=== PATIENT | male | born 1975 | race Caucasian/White ===

== ENCOUNTER 2018-03-21 08:45 | Emergency (ER) | payer OTHER ==
[2018-03-21] MEDS ORDERED: SODIUM CHLORIDE 0.9% 1,000 ML IV ONE (09:03)
[2018-03-21] MEDS ORDERED: KETOROLAC 60 MG/2 ML VIAL IVP STA (09:03)
--- NOTE | 2018-03-21 09:06 | ED Physician Documentation ---
PD HPI ABD PAIN - Stated complaint Stated Complaint: RT SIDE ABDOMINAL PAIN - Chief complaint Chief Complaint: Abd Pain - History obtained from History obtained from: Patient - History of Present Illness Timing - onset: Today Timing - duration: Minutes Timing - details: Abrupt onset, Still present Quality: Sharp, Pain Location: RUQ Radiation: Right flank Improved by: Other (nothing) Worsened by: Other (nothing) Associated symptoms: No: Fever, Nausea, Vomiting Similar symptoms before: Diagnosis (kidney stone) Recently seen: Not recently seen - Additional information Additional information: 43-year-old male with a history of kidney stones has developed right flank pain radiating down the anterior part of his abdomen this morning. He has no modifying factors for this pain he has had similar pain previously with kidney stone. His first kidney stone took him 2 weeks to pass the second 1 passed within 2 days. He has had CT scan last in 2011. He denies any fever nausea vomiting or loss of appetite. Review of Systems Constitutional: denies: Fever, Chills Eyes: denies: Decreased vision Ears: denies: Ear pain Nose: denies: Congestion Throat: denies: Sore throat Respiratory: denies: Cough GI: reports: Abdominal Pain. denies: Nausea, Vomiting : denies: Dysuria, Frequency PD PAST MEDICAL HISTORY - Past Medical History Past Medical History: Yes Neuro: Migraines : Kidney stones - Present Medications Home Medications: Ambulatory Orders Medication Instructions Recorded Confirmed HYDROcod/ACETAM 5/325 [[place] 5/325] 1 - 2 ea PO Q6H PRN #15 tablet 03/21/18 Omeprazole 20 mg PO 03/21/18 - Allergies Allergies/Adverse Reactions: Allergies Allergy/AdvReac Type Severity Reaction Status Date / Time erythromycin base Allergy Hives Verified 03/21/18 08:52 - Social History Does the pt smoke?: No Smoking Status: Never smoker PD ED PE NORMAL - Vitals Vital signs reviewed: Yes (hypertensive ) - General General: Alert and oriented X 3, No acute distress, Well developed/nourished - HEENT HEENT: Atraumatic, PERRL, EOMI - Neck Neck: Supple, no meningeal sign - Respiratory Respiratory: No respiratory distress - Abdomen Abdomen: Normal bowel sounds, Soft, Non tender, Non distended, No organomegaly - Back Back: No CVA TTP, No spinal TTP - Derm Derm: Normal color, Warm and dry, No rash - Extremities Extremities: No deformity, No edema - Neuro Neuro: No motor deficit, No sensory deficit Eye Opening: Spontaneous Motor: Obeys Commands Verbal: Oriented GCS Score: 15 - Psych Psych: Normal mood, Normal affect Results - Vitals Vitals: Vital Signs - 24 hr 03/21/18 03/21/18 08:53 09:29 Temperature 36.5 C Heart Rate 55 L 69 Respiratory 18 14 Rate Blood Pressure 164/93 H 125/71 O2 Saturation 97 98 Oxygen O2 Source Room air - Labs Labs: Laboratory Tests 03/21/18 10:05 Urine Color YELLOW Urine Clarity CLEAR Urine pH 7.0 Ur Specific [place] 1.020 Urine Protein NEGATIVE Urine Glucose (UA) NEGATIVE Urine Ketones NEGATIVE Urine Occult Blood TRACE-INTA Urine Nitrite NEGATIVE Urine Bilirubin NEGATIVE Urine Urobilinogen 0.2 (NORMAL) Ur Leukocyte Esterase NEGATIVE Ur Microscopic Review NOT INDICATED Urine Culture Comments NOT INDICATED Procedures - Bedside sono Bedside sono by EMP: With use of bedside ultrasound the right kidney is imaged it is sonographically nontender and there is evidence of hydronephrosis. PD MEDICAL DECISION MAKING - ED course Complexity details: reviewed results, re-evaluated patient, considered differential, d/w patient ED course: 43-year-old male with a prior history of kidney stone has typical symptoms back again today and has right flank pain. He does have a sonographically nontender kidney with evidence of hydronephrosis on the right side. I discussed with the patient the strategy of treatment of the kidney stone and delay of further imaging procedures. He is administered 1 L of saline and 30 mg of Toradol intravenously. - Sepsis Event Vital Signs: Vital Signs - 24 hr 03/21/18 03/21/18 08:53 09:29 Temperature 36.5 C Heart Rate 55 L 69 Respiratory 18 14 Rate Blood Pressure 164/93 H 125/71 O2 Saturation 97 98 Oxygen O2 Source Room air Departure - Departure Disposition: 01 Home, Self Care Clinical Impression: Ureterolithiasis Condition: Stable Instructions: ED Stone Renal W Colic Follow-Up: TRISTON LONGO [Primary Care Provider] - Prescriptions: HYDROcod/ACETAM 5/325 [[place] 5/325] 1 - 2 ea PO Q6H PRN #15 tablet PRN Reason: Pain
[2018-03-21 10:20] LABS: BILIRUBIN,URINE NEGATIVE (NEGATIVE); GLUCOSE, URINE (UA) NEGATIVE (NEGATIVE); KETONES,URINE (UA) NEGATIVE (NEGATIVE); LEUKOCYTE ESTERASE, URINE NEGATIVE (NEGATIVE); NITRITE,URINE NEGATIVE (NEGATIVE); OCCULT BLOOD,URINE TRACE-INTA (NEGATIVE); PROTEIN,URINE NEGATIVE (NEGATIVE); UROBILINOGEN,URINE 0.2 (NORMAL) E.U./dL (NORMAL)
[2018-03-21 10:23] LABS: CLARITY,URINE CLEAR (CLEAR)
[2018-03-21 10:40] VITALS: BP 147/98
== END 2018-03-21 10:40 | disposition home or self-care (01) ==
LOC: ED 08:45
DX: N20.9 Urinary calculus, unspecified (principal); Z87.442 Personal history of urinary calculi
CPT/HCPCS: 81001; 81003; 87086; 96361; 96374; 99283

== ENCOUNTER 2020-02-05 20:15 | Emergency (ER) | payer OTHER ==
--- NOTE | 2020-02-05 20:55 | ED Physician Documentation ---
History of Present Illness - Stated complaint Stated Complaint: L SHOULDER PAIN - Chief complaint Chief Complaint: Ext Problem - History obtained from History obtained from: Patient (44-year-old male patient comes in today with a chief complaint of right shoulder pain. Started this morning after he awoke. 1 when at sound but then has returned this evening. 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 Does not do any strenuous work. States that he was mowing the lawn today on a riding lawnmower and had no he denies any trauma to the right shoulder. He states that the only time it hurts is when he sits in his recliner or lays down on his bed. Patient states also that over the past month and a half or 2 that he is not had some episodes of dizziness, associated with nausea as well. But denies any chest pain or vomiting. Patient denies any surgeries to the right shoulder. He does have a right O[place] cystectomy secondary to gallstones. No other concerns today.) Review of Systems Constitutional: reports: Reviewed and negative Eyes: reports: Reviewed and negative Ears: reports: Reviewed and negative Nose: reports: Reviewed and negative Throat: reports: Reviewed and negative Cardiac: reports: Reviewed and negative. denies: Chest pain / pressure, Palpitations, Pedal edema Respiratory: reports: Reviewed and negative GI: reports: Nausea. denies: Abdominal Pain, Abdominal Swelling, Vomiting : reports: Reviewed and negative Neurologic: reports: Other (dizziness on occasion.) PD PAST MEDICAL HISTORY - Past Medical History Neuro: Migraines : Kidney stones - Present Medications Home Medications: Ambulatory Orders Medication Instructions Recorded Confirmed HYDROcod/ACETAM 5/325 [[place] 5/325] 1 - 2 ea PO Q6H PRN #15 tablet 03/21/18 Omeprazole 20 mg PO 03/21/18 - Allergies Allergies/Adverse Reactions: Allergies Allergy/AdvReac Type Severity Reaction Status Date / Time erythromycin base Allergy Hives Verified 02/05/20 20:18 - Social History Does the pt smoke?: No Smoking Status: Never smoker PD ED PE NORMAL - General General: Alert and oriented X 3, No acute distress - HEENT HEENT: Atraumatic, PERRL, EOMI, Ears normal - Neck Neck: Supple, no meningeal sign, No bony TTP, No adenopathy, Other (Active full range of motion to the cervical spine.) - Cardiac Cardiac: RRR, No murmur, No gallop - Respiratory Respiratory: No respiratory distress, Clear bilaterally - Abdomen Abdomen: Normal bowel sounds, Soft, Non tender, Non distended, No organomegaly - Extremities Extremities: No deformity, No tenderness to palpate, Normal ROM s pain, Other (right shoulder with normal AROM w/o pain. 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 Eye Opening: Spontaneous Motor: Obeys Commands Verbal: Oriented GCS Score: 15 - Psych Psych: Normal mood, Normal affect Results - Vitals Vitals: Vital Signs - 24 hr 02/05/20 20:18 Temperature 36.5 C Heart Rate 78 Respiratory 16 Rate Blood Pressure 172/97 H O2 Saturation 96 Oxygen O2 Source Room air - Labs Labs: Laboratory Tests 02/05/20 02/05/20 02/05/20 21:03 21:03 21:03 WBC 7.1 RBC 5.54 Hgb 16.4 Hct 47.7 MCV 86.1 MCH 29.6 MCHC 34.4 RDW 13.7 Plt Count 226 MPV 9.8 Neut # (Auto) 3.5 Lymph # (Auto) 2.5 [place] # (Auto) 0.6 Eos # (Auto) 0.4 Baso # (Auto) 0.1 Absolute Nucleated RBC 0.00 Nucleated RBC % 0.0 Sodium 137 Potassium 3.8 Chloride 107 Carbon Dioxide 22 Anion Gap 8.0 BUN 15 Creatinine 1.1 Estimated GFR (MDRD) 73 L Glucose 122 H Calcium 9.0 Total Bilirubin 0.6 AST 22 ALT 33 Alkaline Phosphatase 108 Troponin I High Sens 4.5 Total Protein 7.7 Albumin 4.2 Globulin 3.5 Albumin/Globulin Ratio 1.2 Lipase 44 - Rads (name of study) No standard instances Radiology: Final report received (Normal Chest x-ray and normal right shoulder x-ray) PD MEDICAL DECISION MAKING - ED course Complexity details: reviewed results, re-evaluated patient, d/w patient ED course: The patient's right shoulder x-ray, and chest x-ray were normal today. Patient does not have any spontaneous pneumothorax on the right side. Patient's blood work came back today normal as well, he does not have an elevated white count nor does he have elevated liver enzymes. Patient denies any trauma to the right shoulder but he has been doing more work outside so there is a possibility that he has a torn rotator cuff. Discussed with the patient of need to follow-up with his primary care physician to figure out if he needs to get an MRI or physical therapy. The patient was instructed on when to return to ER, if he has worsening right shoulder pain, difficulty breathing, chest pain, jaw pain, or loss of functional use of his right upper extremity. Departure - Departure Disposition: 01 Home, Self Care Clinical Impression: Shoulder pain, right Qualifiers: Chronicity: acute Qualified Code(s): M25.511 - Pain in right shoulder Condition: Good Instructions: ED Sprain Shoulder Comments: Starting tomorrow morning you can take ibuprofen 600 to 800 mg 3 times a day, make sure you to drink plenty of clear fluids while taking ibuprofen.You can also take Tylenol 500 mg every 4-6 hours for pain control as well. Use ice in your right shoulder 10 to 15 minutes every 1-2 hours for the next several days. If you develop jaw pain, she is neck pain, chest pain, nausea, vomiting while you are having the shoulder pain return to the ER for further evaluation.Should your shoulder pain persists over the next week follow-up with your primary care physician to discuss getting an MRI of the right shoulder to rule out a rotator cuff tear.
[2020-02-05 21:07] LABS: BASOPHILS # (AUTO) 0.1 10^3/uL (0.0-0.1); EOSINOPHILS # (AUTO) 0.4 10^3/uL (0.0-0.7); EOSINOPHILS % (AUTO) 6.1 %; HGB - HEMOGLOBIN 16.4 g/dL (14.0-18.0); LYMPHOCYTES # (AUTO) 2.5 10^3/uL (1.5-3.5); LYMPHOCYTES % (AUTO) 35.4 %; MEAN CORPUSCULAR HEMOGLOBIN 29.6 pg (27.0-31.0); MEAN CORPUSCULAR HGB CONC 34.4 g/dL (32.0-36.0); MEAN CORPUSCULAR VOLUME 86.1 fL (80.0-94.0); MEAN PLATELET VOLUME 9.8 fL (7.4-11.4); MONOCYTES # (AUTO) 0.6 10^3/uL (0.0-1.0); MONOCYTES % (AUTO) 7.9 %; NEUTROPHILS # (AUTO) 3.5 10^3/uL (1.5-6.6); NEUTROPHILS % (AUTO) 49.3 %; PLT - PLATELET COUNT 226 10^3/uL (130-450); RED BLOOD COUNT 5.54 10^6/uL (4.70-6.10); RED CELL DISTRIBUTION WIDTH 13.7 % (12.0-15.0); WHITE BLOOD COUNT 7.1 x10^3/uL (4.8-10.8)
[2020-02-05 21:21] LABS: ALBUMIN 4.2 g/dL (3.2-5.5); ALBUMIN/GLOBULIN RATIO 1.2 (1.0-2.2); BILIRUBIN,TOTAL 0.6 mg/dL (0.2-1.0); CREATININE 1.1 mg/dL (0.6-1.2); TOTAL PROTEIN 7.7 g/dL (6.7-8.2)
--- NOTE | 2020-02-05 21:36 | XRAY Report ---
Reason: chest pain Procedure Date: 02/05/2020 Accession Number: [id number] / [id number] Procedure: XR - Chest 1 View X-Ray CPT Code: 52643 Final Report FULL RESULT: EXAM: CHEST RADIOGRAPHY EXAM DATE: 02/05/2020 09:16 PM. CLINICAL HISTORY: Chest pain. COMPARISON: SHOULDER 3 VIEW BILAT 02/05/2020 9:05 PM. TECHNIQUE: PA view. FINDINGS: Lungs/Pleura: No focal opacities evident. No pleural effusion. No pneumothorax. Mediastinum: Within exam limitations, the cardiomediastinal contour is normal. Other: None. IMPRESSION: Normal single view chest. RADIA
--- NOTE | 2020-02-05 21:37 | XRAY Report ---
Reason: shoulder pain Procedure Date: 02/05/2020 Accession Number: [id number] / [id number] Procedure: XR - Shoulder 3 View RT CPT Code: Final Report FULL RESULT: EXAM: RIGHT SHOULDER RADIOGRAPHY EXAM DATE: 02/05/2020 09:20 PM. CLINICAL HISTORY: Right shoulder pain. No trauma. COMPARISON: CHEST 1 VIEW 02/05/2020 9:05 PM. TECHNIQUE: 3 views. FINDINGS: Bones: Normal. No fracture or bone lesion. Joints: The glenohumeral and acromioclavicular joints are normal. Soft tissues: The visualized hemithorax is unremarkable. No soft tissue swelling. IMPRESSION: Normal right shoulder radiography. RADIA
[2020-02-05] MEDS ORDERED: KETOROLAC 30 MG/ML VIAL IVP STA (21:58)
[2020-02-05] MEDS ORDERED: KETOROLAC 30 MG/ML VIAL ONE (22:02)
[2020-02-05 22:27] VITALS: BP 155/95
== END 2020-02-05 22:27 | disposition home or self-care (01) ==
LOC: ED 20:15
DX: M25.511 Pain in right shoulder (principal); R42 Dizziness and giddiness; R11.0 Nausea
CPT/HCPCS: 36415; 71045; 80053; 83690; 84484; 85025; 93005; 96374; 99284

== ENCOUNTER 2021-03-31 10:23 | Emergency (ER) | payer OTHER ==
[2021-03-31 11:03] LABS: BASOPHILS # (AUTO) 0.1 10^3/uL (0.0-0.1); BASOPHILS % (AUTO) 1.5 %; EOSINOPHILS # (AUTO) 0.4 10^3/uL (0.0-0.7); EOSINOPHILS % (AUTO) 7.5 %; HCT - HEMATOCRIT 50.6 % (42.0-52.0); HGB - HEMOGLOBIN 17.2 g/dL (14.0-18.0); LYMPHOCYTES # (AUTO) 2.3 10^3/uL (1.5-3.5); LYMPHOCYTES % (AUTO) 39.8 %; MEAN CORPUSCULAR HEMOGLOBIN 29.4 pg (27.0-31.0); MEAN CORPUSCULAR VOLUME 86.3 fL (80.0-94.0); MEAN PLATELET VOLUME 9.8 fL (7.4-11.4); MONOCYTES # (AUTO) 0.7 10^3/uL (0.0-1.0); MONOCYTES % (AUTO) 11.6 %; NEUTROPHILS # (AUTO) 2.3 10^3/uL (1.5-6.6); NEUTROPHILS % (AUTO) 39.3 %; PLT - PLATELET COUNT 239 10^3/uL (130-450); RED BLOOD COUNT 5.86 10^6/uL (4.70-6.10); RED CELL DISTRIBUTION WIDTH 14.1 % (12.0-15.0); WHITE BLOOD COUNT 5.9 x10^3/uL (4.8-10.8)
[2021-03-31] MEDS ORDERED: ACETAMINOPHEN 325 MG TABLET PO STA (11:03)
[2021-03-31 11:12] LABS: BILIRUBIN,URINE NEGATIVE (NEGATIVE); GLUCOSE, URINE (UA) NEGATIVE (NEGATIVE); KETONES,URINE (UA) NEGATIVE (NEGATIVE); LEUKOCYTE ESTERASE, URINE NEGATIVE (NEGATIVE); NITRITE,URINE NEGATIVE (NEGATIVE); OCCULT BLOOD,URINE NEGATIVE (NEGATIVE); PROTEIN,URINE NEGATIVE (NEGATIVE); UROBILINOGEN,URINE 1 (NORMAL) E.U./dL (NORMAL)
[2021-03-31 11:13] LABS: CLARITY,URINE CLEAR (CLEAR)
[2021-03-31 11:14] LABS: ALBUMIN 4.4 g/dL (3.2-5.5); ALBUMIN/GLOBULIN RATIO 1.3 (1.0-2.2); BILIRUBIN,TOTAL 0.5 mg/dL (0.2-1.0); CALCIUM 8.9 mg/dL (8.5-10.3); POTASSIUM 4.1 mmol/L (3.5-5.0); TOTAL PROTEIN 7.8 g/dL (6.7-8.2)
--- NOTE | 2021-03-31 11:40 | ED Physician Documentation ---
History of Present Illness - Stated complaint Stated Complaint: STOMACH PX - Chief complaint Chief Complaint: Abd Pain - History obtained from History obtained from: Patient - Additonal information Additional information: 46-year-old man presented with sudden onset pain an hour and a half prior to arrival localized to the center of the abdomen radiating up from underneath the bellybutton to just above the bellybutton. pain was constant, moderate severity, aching, and resolved after lying down. also with intermittent twinges in the LLQ over the past few days. Denies fever, nausea, diarrhea, urinary symptoms. He states that his pain is now gone away. Review of Systems Ten Systems: 10 systems reviewed and negative Constitutional: denies: Fever, Chills GI: reports: Abdominal Pain. denies: Nausea, Vomiting, Constipation, Diarrhea, Bloody / black stool : denies: Dysuria Musculoskeletal: reports: Other (chronic low back pain) PD PAST MEDICAL HISTORY - Past Medical History Past Medical History: Yes Cardiovascular: Hypertension Respiratory: Sleep apnea, CPAP use Neuro: Migraines Endocrine/Autoimmune: None GI: GERD : Kidney stones HEENT: None Musculoskeletal: Chronic back pain Derm: None - Past Surgical History Past Surgical History: No - Present Medications Home Medications: Ambulatory Orders Medication Instructions Recorded Confirmed Omeprazole 20 mg PO DAILY 03/21/18 03/31/21 SUMAtriptan [Imitrex] 25 mg ORAL PRN PRN 03/31/21 03/31/21 - Allergies Allergies/Adverse Reactions: Allergies Allergy/AdvReac Type Severity Reaction Status Date / Time erythromycin base Allergy Hives Verified 03/31/21 10:31 - Social History Does the pt smoke?: No Smoking Status: Former smoker Does the pt drink ETOH?: Yes Does the pt have substance abuse?: No - Immunizations Immunizations are current?: Yes PD ED PE NORMAL - Vitals Vital signs reviewed: Yes - General General: Alert and oriented X 3, No acute distress, Well developed/nourished - HEENT HEENT: Atraumatic, PERRL, EOMI - Neck Neck: Supple, no meningeal sign - Cardiac Cardiac: RRR - Respiratory Respiratory: No respiratory distress, Clear bilaterally - Abdomen Abdomen: Non tender, Non distended, Other (Palpable ventral wall defect) - Derm Derm: Normal color, Warm and dry - Extremities Extremities: No deformity - Neuro Neuro: Alert and oriented X 3 - Psych Psych: Normal mood, Normal affect Results - Vitals Vitals: Vital Signs - 24 hr 03/31/21 10:28 Temperature 36.9 C Heart Rate 72 Respiratory 18 Rate Blood Pressure 154/111 H O2 Saturation 99 Oxygen O2 Source Room air - Labs Labs: Laboratory Tests 03/31/21 03/31/21 03/31/21 10:50 10:50 10:51 WBC 5.9 RBC 5.86 Hgb 17.2 Hct 50.6 MCV 86.3 MCH 29.4 MCHC 34.0 RDW 14.1 Plt Count 239 MPV 9.8 Neut # (Auto) 2.3 Lymph # (Auto) 2.3 [place] # (Auto) 0.7 Eos # (Auto) 0.4 Baso # (Auto) 0.1 Absolute Nucleated RBC 0.00 Nucleated RBC % 0.0 Sodium 137 Potassium 4.1 Chloride 104 Carbon Dioxide 27 Anion Gap 6.0 BUN 18 Creatinine 1.0 Estimated GFR (MDRD) 80 L Glucose 106 H Calcium 8.9 Total Bilirubin 0.5 AST 20 ALT 34 Alkaline Phosphatase 108 Total Protein 7.8 Albumin 4.4 Globulin 3.4 Albumin/Globulin Ratio 1.3 Lipase 33 Urine Color DARK YELLOW Urine Clarity CLEAR Urine pH 6.0 Ur Specific [place] 1.025 Urine Protein NEGATIVE Urine Glucose (UA) NEGATIVE Urine Ketones NEGATIVE Urine Occult Blood NEGATIVE Urine Nitrite NEGATIVE Urine Bilirubin NEGATIVE Urine Urobilinogen 1 (NORMAL) Ur Leukocyte Esterase NEGATIVE Ur Microscopic Review NOT INDICATED Urine Culture Comments NOT INDICATED PD MEDICAL DECISION MAKING - ED course ED course: 46-year-old man presents with possible ventral hernia. Education given about symptom management. Strict return precautions given. He will follow up with surgery clinic. Departure - Departure Disposition: 01 Home, Self Care Clinical Impression: Ventral hernia Condition: Good Instructions: ED Abdominal Pain Unkn Cause Male Follow-Up: Damian Contreras MD [Provider Admit Priv/Credential] - Comments: You are seen in the emergency department for midline abdominal pain that may be caused by a ventral hernia. You should follow-up in surgery clinic for evaluation. Please return to the emergency department if you have any new or worsening symptoms or other concerns. Glad that you are feeling better!
[2021-03-31 11:51] VITALS: BP 138/90
== END 2021-03-31 11:49 | disposition home or self-care (01) ==
LOC: ED 10:23
DX: K43.9 Ventral hernia without obstruction or gangrene (principal); I10 Essential (primary) hypertension; Z87.891 Personal history of nicotine dependence
CPT/HCPCS: 36415; 80053; 81003; 83690; 85025; 99283; 99284; A9270; 81001; 87086

== ENCOUNTER 2022-08-11 13:42 | Outpatient (CLI) | payer OTHER ==
--- NOTE | 2022-08-11 15:48 | MRI Report ---
PROCEDURE: CERVICAL SPINE WO INDICATIONS: Cervicalgia TECHNIQUE: Noncontrast sagittal T1 spin echo and T2 fast spin echo, sagittal STIR, foraminal oblique sagittal T2 fast spin echo, and axial gradient echo or T2 fast spin echo through the cervical spine. COMPARISON: None. FINDINGS: Image quality: Excellent. Alignment and Curvature: There is normal bony alignment. Bone Marrow: Marrow demonstrates normal overall signal. Spinal Cord: Visualized spinal cord has normal size and signal. No cerebellar tonsillar herniation. Regional Soft Tissues: No paravertebral masses. Prevertebral soft tissues are normal in thickness. C2-C3: No spinal canal or neural foraminal stenosis. C3-C4: Mild bilateral neural foraminal narrowing due to facet and uncovertebral hypertrophy. No spi nal canal stenosis. C4-C5: Mild bilateral neural foraminal stenosis due to facet and uncovertebral hypertrophy. No spina l canal stenosis. C5-C6: Mild spinal canal stenosis due to posterior disc-osteophyte complex. Trace neural foraminal n arrowing due to uncovertebral spurring. C6-C7: No spinal canal stenosis. Moderate left neural foraminal narrowing due to uncovertebral spurr ing and a diffuse disc bulge. C7-T1: No spinal canal or neural foraminal stenosis. IMPRESSION: Multilevel multifactorial degenerative changes as detailed above. Correlate for any corresponding rad icular symptoms. Reviewed by: Ishan Puentes MD on 08/11/2022 3:47 PM PST Approved by: Ishan Puentes MD on 08/11/2022 3:47 PM PST Station ID: [id number]
== END 2022-08-11 13:43 | disposition home or self-care (01) ==
LOC: DI 13:42
PROVIDERS: ATTEND Physician Assistant
DX: G62.9 Polyneuropathy, unspecified (principal); M47.812 Spondylosis without myelopathy or radiculopathy, cervical region; M48.02 Spinal stenosis, cervical region